=== PATIENT | male | born 1950 ===

== ENCOUNTER 2016-10-19 14:14 | Emergency (ER) | payer MEDICARE ==
[~2016-10-19 14:14] MED LIST: ATARAX50B PO; ATEN25 PO; CILOXAN OPH; FISH-EPA1000 MG PO; HYDROCHLOROT25 MG PO; INSNOV7030 SC; INSULIN SYRINGE SC; LANTUS; LIPITOR80 MG PO; LOPID6 PO; MONOPRIL40 MG PO; NITROSTAT0.4 MG SL; NO LIST; NORV10 PO; NOVOLOG; NOVOPEN SC; PAXIL40 MG PO; PRILO PO; PROAIR HFA INH; STERAPRED DS10 MG; [UNRECOGNIZED DRUG - MIXTURE] PO; [UNRECOGNIZED DRUG - OTHER] TOP
[2016-10-19 15:20] LABS: BASOPHILS 0.2 %; BASOPHILS ABSOLUTE 0.02 10/3/uL (0.0-0.16); EOSINOPHILS 1.5 %; HEMATOCRIT 39.7 % (40.0-51.0); HEMOGLOBIN 13.3 g/dL (13.6-17.8); IMMATURE GRANULOCYTES 0.2 %; IMMATURE GRANULOCYTES ABSOLUTE 0.02 10/3/uL (0.0-0.11); LYMPHOCYTES 12.3 %; LYMPHOCYTES ABSOLUTE 1.61 10/3/uL (0.67-4.30); MEAN CORPUS HGB CONC 33.5 g/dL (32.0-36.0); MEAN CORPUSCULAR HEMOGLOB 29.4 pg (26.0-34.0); MEAN CORPUSCULAR VOLUME 87.8 fL (80-100); MEAN PLATELET VOLUME 9.7 fL (9.2-13.0); MONOCYTES ABSOLUTE 0.91 10/3/uL (0.21-1.20); NEUTROPHILS 78.8 %; NEUTROPHILS ABSOLUTE 10.29 10/3/uL (2.02-8.40); PLATELET COUNT 192 10/3/uL (150-400); RED CELL COUNT 4.52 10/6/uL (4.7-6.1)
[2016-10-19 15:21] LABS: MANUAL DIFF NO %; WHITE BLOOD CELLS 13.1 10/3/uL (4.5-10.5)
[2016-10-19 15:33] LABS: BUN (BLOOD UREA NITROGEN) 45 MG/DL (6-23); CALCIUM, SERUM 8.7 MG/DL (8.5-10.4); CHLORIDE, SERUM 103 MMOL/L (96-112); CO2 (CARBON DIOXIDE) 26 MMOL/L (24-34); CREATININE 2.99 MG/DL (0.70-1.30); GFR AFRICAN AMERICAN 24 ML/MIN (>=60); GFR NON AFRICAN AMERICAN 21 ML/MIN (>=60); GLUCOSE, SERUM 199 MG/DL (60-99); POTASSIUM, SERUM 4.6 MMOL/L (3.5-5.3); SODIUM, SERUM 137 MMOL/L (135-148)
== END 2016-10-19 17:23 | disposition home or self-care (01) ==
LOC: ER 14:14
PROVIDERS: Physician Assistant Medical
PROC: 0H98XZZ Drainage of Buttock Skin, External Approach (ICD-10-PCS; principal; 2016-10-19)
DX: L02.31 Cutaneous abscess of buttock (principal); E11.65 Type 2 diabetes mellitus with hyperglycemia; E11.22 Type 2 diabetes mellitus with diabetic chronic kidney disease; N18.9 Chronic kidney disease, unspecified; Z79.4 Long term (current) use of insulin; Z79.899 Other long term (current) drug therapy; Z79.52 Long term (current) use of systemic steroids
CPT/HCPCS: 80048; 82962; 83605; 85025; 87040; 87070; 87077; 87186; 87205; 96365; 96375; 99283; J1170